=== PATIENT | male | born 1990 | race Caucasian/White ===

== ENCOUNTER 2022-02-24 13:32 | Emergency (ER) | payer OTHER ==
[~2022-02-24] VITALS: Ht 177.8 cm; Wt 70.3 kg
[~2022-02-24 13:32] MED LIST: AMOCLA875 PO; CEFP200 PO; IBUP800 PO; MECL25 PO; ONDA8ODT MM
== END 2022-02-24 15:48 | disposition home or self-care (01) ==
LOC: ER 13:32
DX: K64.4 Residual hemorrhoidal skin tags (principal); F17.210 Nicotine dependence, cigarettes, uncomplicated
CPT/HCPCS: 99283